=== PATIENT | male | born 1995 | race Caucasian/White ===

== ENCOUNTER → 2016-12-31 | Outpatient (CLI) | payer OTHER, BC ==
[~2016-12-31] MED LIST: AZITTAB PO; GABA1CAP5 PO; NAPR-1169 PO; PANT40TA PO
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
== END | disposition home or self-care (01) ==
LOC: C.RDSM 10:59
PROVIDERS: ATTEND Physical Medicine & Rehabilitation Sports Medicine
DX: S82.81 Torus fracture of upper end of fibula (principal); X58.XXXD Exposure to other specified factors, subsequent encounter; M25.511 Pain in right shoulder

== ENCOUNTER → 2017-10-29 | Day surgery (SDC) | payer OTHER, BC ==
[2017-10-09 14:06] VITALS: Ht 182.9 cm; Wt 90.9 kg
[~2017-10-29] VITALS: Ht 182.9 cm; Wt 90.9 kg
[~2017-10-29] MED LIST changes: -AZITTAB PO; -GABA1CAP5 PO; -NAPR-1169 PO
== END | disposition home or self-care (01) ==
LOC: C.PAT 13:01 → EDSTATUS 14:00
PROVIDERS: ATTEND Physical Medicine & Rehabilitation
DX: M54.5 Low back pain (principal)

== ENCOUNTER → 2017-12-09 | Day surgery (SDC) | payer BC, OTHER ==
[2017-11-27 12:12] VITALS: Ht 182.9 cm; Wt 90.9 kg
[~2017-12-09] VITALS: Ht 182.9 cm; Wt 90.9 kg
[~2017-12-09] MED LIST changes: +IOPAMIDOL INJ 61% 15 ML VIAL ONE; +LIDOCAINE HCL 1% MPF 5 ML VIAL ONE; +SODIUM CHLORIDE 0.9% INJ 10 ML VIAL ONE
--- NOTE | 2017-12-09 15:13 | History & Physical Bridge - [place] ---
H&P Re-Evaluation Bridge Note: I have examined the patient, reviewed the History & Physical and in the interval since the performance of the History & Physical I have noted the following changes of clinical significance: No changes noted
--- NOTE | 2017-12-09 15:36 | [facility] Post Operative Brief Note ---
Immediate Operative Summary Operative Date Dec 09, 2017. Pre-Operative Diagnosis L5-S1 ANNULAR TEAR WITH BILATERAL LOWER EXTREMITY RADICULOPATHIES, LEFT>RIGHT Post-Operative Diagnosis SAME Procedure(s) Performed LUMBAR EPIDURAL STEROID INJECTION Surgeon DR. Ar GREENFIELD Support Clerk Surgeon(s) 0 Estimated Blood Loss 0 Findings As per HPI Specimens NA Complication(s) None Disposition Recovery Room / PACU
--- NOTE | 2017-12-09 15:38 | Discharge Instructions ---
Discharge Instructions Date of Service Dec 09, 2017. Visit Reason for Visit: Lumbar Radiculopathy Discharge Discharge Diagnosis / Problem: Leg pain Discharge Goals Goal(s): Decrease discomfort, Improve function Activity Recommendations Activity Limitations: resume your previous activity Anesthesia . Post Anesthesia Instructions: If you have had General Anesthesia or IV Sedation: * Do not drive today. * Resume driving when surgeon permits. * Do not make important decisions or sign legal documents today. * Call surgeon for: 1. Temperature elevations greater than 101 degrees F. 2. Uncontrollable pain. 3. Excessive bleeding. 4. Persistent nausea and vomiting. 5. Medication intolerance (nausea, vomiting or rash). * For nausea and vomiting use only clear liquids such as: tea, soda, bouillon until nausea subsides, then gradually increase diet as tolerated. * If you have any concerns or questions, call your surgeon's office. If physician is unavailable and it is an emergency, call 911 or go to the nearest emergency room. . Diet Recommendations Recommended Home Diet: resume previous diet Procedures Procedures Performed: LUMBAR EPIDURAL STEROID INJECTION Pending Studies Studies pending at discharge: no Medical Emergencies . Who to Call and When: Medical Emergencies: If at any time you feel your situation is an emergency, please call 911 immediately. . Non-Emergent Contact Non-Emergency issues call your: Specialist . . "Provider Documentation" section prepared by Sam Pat. .
[2017-12-09 15:58] VITALS: BP 124/76; PULSE 80; O2SAT 99
--- NOTE | 2017-12-09 16:03 | OPERATIVE REPORT ---
DATE OF OPERATION: 12/09/2017 PREOPERATIVE DIAGNOSIS: L5-S1 annular tear with bilateral lower extremity radiculopathy, left greater than right. POSTOPERATIVE DIAGNOSIS: Same. PROCEDURE: Left paramedian L5-S1 intralaminar epidural steroid injection under fluoroscopic guidance. INDICATIONS: The patient is a 22-year-old white male who presents today for an epidural injection as he has failed conservative treatments and has returned back to work with radicular complaints. PHYSICAL EXAMINATION: Pleasant male, having a difficulty time moving from a sit to stand position. He has no focal weakness. Decreased subjective sensation in the left L5 dermatomal distribution with positive seated straight leg raises. CONSENT: Verbal and written consent was obtained from the patient. Risks and benefits were reviewed. Risks include, but are not limited to abscess, epidural abscess, epidural hematoma, allergic reaction, and dural puncture. The patient wishes to proceed. DESCRIPTION OF PROCEDURE: The patient was taken back into the special procedures room of the [facility], where he was maintained in a prone position. Backside was cleansed with Betadine x3 and a dry sterile dressing was applied. Fluoroscope was used to identify the L5-S1 intralaminar space. Overlying skin on the left side was anesthetized with 4 mL of lidocaine 1% with a 25-gauge 1-1/2 inch needle. A 22-gauge 3-1/2 inch Tuohy needle was then directed down towards the intralaminar space. It was advanced under lateral fluoroscopic guidance and loss of resistance was noted at a depth of 5 cm. Isovue-300 contrast 1 mL was injected in which demonstrated epidural uptake pattern. He then underwent injection after negative aspiration of 40 mg of Depo-Medrol and 4 mL of preservative free sodium chloride. Injection was well tolerated and reproduced a familiar transient radicular sensation down the left leg. DISPOSITION: 1. The patient was taken out into the discharge recovery area, where he will be discharged home once discharge criteria have been met. 2. Follow up in the [facility] office in 2-4 weeks. I attest to the content of the Intraoperative Record and any orders documented therein. Any exception s are noted below.
== END | disposition home or self-care (01) ==
LOC: X.SURG 14:11
PROVIDERS: ATTEND Physical Medicine & Rehabilitation
DX: M54.17 Radiculopathy, lumbosacral region (principal)

== ENCOUNTER → 2018-02-24 | Day surgery (SDC) | payer BC, OTHER ==
[2018-02-04 15:02] VITALS: Ht 182.9 cm; Wt 84.1 kg
[~2018-02-24] VITALS: Ht 182.9 cm; Wt 84.1 kg
--- NOTE | 2018-02-24 14:23 | [facility] Post Operative Brief Note ---
Immediate Operative Summary Operative Date Feb 24, 2018. Pre-Operative Diagnosis L5-S1 ANNULAR TEAR WITH BILATERAL LOWER EXTREMITY RADICULOPATHY, LEFT>RIGHT. Post-Operative Diagnosis SAME. Procedure(s) Performed LUMBAR EPIDURAL STEROID INJECTION. Surgeon DR. Ar GREENFIELD Boil Off Worker Surgeon(s) None Estimated Blood Loss 0 Findings Consistent with Post-Op Diagnosis Specimens NA Drains None Anesthesia Type Local Complication(s) none Disposition Disposition:
--- NOTE | 2018-02-24 14:25 | Discharge Instructions ---
Discharge Instructions Date of Service Feb 24, 2018. Visit Reason for Visit: Lumbar Radiculopathy Discharge Discharge Diagnosis / Problem: left leg pain Discharge Goals Goal(s): Decrease discomfort, Improve function Activity Recommendations Activity Limitations: resume your previous activity Anesthesia . Post Anesthesia Instructions: If you have had General Anesthesia or IV Sedation: * Do not drive today. * Resume driving when surgeon permits. * Do not make important decisions or sign legal documents today. * Call surgeon for: 1. Temperature elevations greater than 101 degrees F. 2. Uncontrollable pain. 3. Excessive bleeding. 4. Persistent nausea and vomiting. 5. Medication intolerance (nausea, vomiting or rash). * For nausea and vomiting use only clear liquids such as: tea, soda, bouillon until nausea subsides, then gradually increase diet as tolerated. * If you have any concerns or questions, call your surgeon's office. If physician is unavailable and it is an emergency, call 911 or go to the nearest emergency room. . Diet Recommendations Recommended Home Diet: resume previous diet Procedures Procedures Performed: LUMBAR EPIDURAL STEROID INJECTION. Pending Studies Studies pending at discharge: no Medical Emergencies . Who to Call and When: Medical Emergencies: If at any time you feel your situation is an emergency, please call 911 immediately. . Non-Emergent Contact Non-Emergency issues call your: Specialist . . "Provider Documentation" section prepared by Sam Pat. .
[2018-02-24 14:27] VITALS: TEMP 36.7
[2018-02-24 14:38] VITALS: BP 128/75; PULSE 72; O2SAT 100
--- NOTE | 2018-02-24 14:44 | OPERATIVE REPORT ---
DATE OF OPERATION: 02/24/2018 PREOPERATIVE DIAGNOSIS: L5-S1 annular tear with left greater than right lower extremity radiculopathy. POSTOPERATIVE DIAGNOSIS: Same. OPERATIVE PROCEDURE: Left paramedian L5-S1 intralaminar epidural steroid injection under fluoroscopic guidance. INDICATIONS: The patient is a 22-year-old white male who underwent an epidural injection with 30% improvement and he notes that the pain at night is not as intense and that is an improvement, so he presents today for an epidural injection to try to stack the effects of the 2 injections to provide him with relief. PHYSICAL EXAMINATION: Pleasant male seated comfortably. He has no issues with forward flexion or extension. He has normal lower extremity strength. Sensation was subjectively decreased in the right L4 dermatomal distribution. Negative seated straight leg raises. CONSENT: Verbal and written consent was obtained from the patient. Risks and benefits were reviewed. Risks include but are not limited to epidural abscess, epidural hematoma, allergic reaction, dural puncture. The patient wishes to proceed. DESCRIPTION OF PROCEDURE: The patient was taken back to the special procedures room of the [facility] where he was maintained in a prone position. Backside was cleansed with Betadine x3 and a dry sterile dressing was applied. Fluoroscope was used to identify the L5-S1 intralaminar space. Overlying skin on the left side was anesthetized with 4 mL of lidocaine 1% with a 25 gauge 1-1/2 inch needle. A 22-gauge 3-1/2 inch Tuohy needle was then directed down towards the intralaminar space. It was advanced under lateral fluoroscopic guidance and loss of resistance was noted at a depth of 5 cm. Isovue-300 contrast 1 mL was injected in which demonstrated epidural uptake pattern which was confirmed with both AP and lateral views. He then underwent injection after negative aspiration of 40 mg of Depo-Medrol and 4 mL of preservative free sodium chloride. Injection was well tolerated. DISPOSITION: 1. The patient is taken out into the discharge recovery area where he will be discharged home once discharge criteria are met. 2. Follow up in the [facility] office in 2-4 weeks. I attest to the content of the Intraoperative Record and any orders documented therein. Any exception s are noted below.
== END | disposition home or self-care (01) ==
LOC: X.SURG 13:15
PROVIDERS: ATTEND Physical Medicine & Rehabilitation
DX: M54.16 Radiculopathy, lumbar region (principal); M51.36 Other intervertebral disc degeneration, lumbar region

== ENCOUNTER → 2018-07-06 | Outpatient (CLI) | payer BC ==
[~2018-07-06] MED LIST changes: -IOPAMIDOL INJ 61% 15 ML VIAL ONE; -LIDOCAINE HCL 1% MPF 5 ML VIAL ONE; -SODIUM CHLORIDE 0.9% INJ 10 ML VIAL ONE
--- NOTE | 2018-07-06 07:46 | DIAGNOSTIC IMAGING REPORT ---
ORBITS FOR MRI CLINICAL HISTORY: 23 years-old Male presenting with LUMBAR RADICULAR PAIN. TECHNIQUE: 3 views of the orbits were obtained. COMPARISON: None. FINDINGS: No radiopaque intraorbital foreign body. Bony orbits grossly intact. Paranasal sinuses grossly clear. Visualized portion of the calvarium intact. IMPRESSION: No intraorbital metallic foreign body to preclude MRI exam. Electronically signed by: Ted Mcmahan M.D. 07/06/2018 7:44 AM Dictated Date/Time: 07/06/2018 7:44 AM
--- NOTE | 2018-07-06 08:58 | DIAGNOSTIC IMAGING REPORT ---
MRI OF THE LUMBAR SPINE WITHOUT IV CONTRAST CLINICAL HISTORY: Low back pain. Left lower extremity radiculopathy. COMPARISON STUDY: MRI of the lumbar spine dated 11/10/2016. TECHNIQUE: MRI of the lumbar spine is performed utilizing various T1 and T2-weighted sequences in the axial and sagittal planes. IV contrast was not administered for this examination. FINDINGS: Lumbar spine: Vertebral body height and alignment are maintained throughout the lumbar spine. Normal marrow signal intensity is preserved throughout the visualized bony structures. The transverse and spinous processes appear intact. There is no evidence of spondylolysis. Intervertebral discs: Normal in height and signal intensity. Spinal cord: The visualized spinal cord is normal in morphology and signal intensity. The conus medullaris terminates at the level of L1. The nerve roots of the cauda equina are normal in morphology. L1-L2: Unremarkable. L2-L3: Unremarkable. L3-L4: Unremarkable. L4-L5: Unremarkable. L5-S1: Unremarkable. Sacrum: The visualized sacrum is normal in morphology and signal intensity. Soft tissues: The paraspinous soft tissues are within normal limits. The intracranial structures are normal as visualized but incompletely assessed. IMPRESSION: 1. There is no disc herniation, central canal stenosis, or neural foraminal narrowing seen throughout the lumbar spine. 2. No destructive bony process is seen. Dictated: 07/06/2018 8:22 AM Transcribed: 07/06/2018 8:58 AM [facility] Electronically signed by: Jose Chapa M.D. 07/06/2018 9:06 AM Dictated Date/Time: 07/06/2018 8:22 AM
== END | disposition home or self-care (01) ==
LOC: C.MRI 07:14
PROVIDERS: ATTEND Physical Medicine & Rehabilitation
DX: M54.16 Radiculopathy, lumbar region (principal)